=== PATIENT | female | born 1990 | race American Indian/Alaskan Native ===

== ENCOUNTER 2018-11-16 07:33 | Day surgery (SDC) | payer BC ==
[2018-11-07 12:10] VITALS: BMI 29.2
[2018-11-16] MEDS ORDERED: Midazolam 2 MG/2 ML VIAL ONE (08:51)
[2018-11-16] MEDS ORDERED: Propofol 10 mg/ml Inj (20 ML) ONE ×2 (08:51→09:20)
[2018-11-16] MEDS ORDERED: ceFOXitin IV 1 gm/100 ml in NS 2 GM/200 ML BAG ONE (08:58)
[2018-11-16] MEDS ORDERED: Lidocaine/Epinephrine 1% 1:100000 10 ML IJ ONE (09:01)
[2018-11-16 10:27] VITALS: RESP 15; O2SAT 100
[2018-11-16 10:39] VITALS: PULSE 74; TEMP 98.7
[2018-11-16 11:27] VITALS: BP 118/69
--- NOTE | 2018-11-17 08:14 | OP ---
PROCEDURE DATE: 11/16/2018 PREOPERATIVE DIAGNOSIS: A 27-year-old 0, para 0, with cervical dysplasia. POSTOPERATIVE DIAGNOSIS: A 27-year-old 0, para 0, with cervical dysplasia. SURGEON: Bridger Ernandez MD VENDING ROUTE DRIVER: None. TYPE OF ANESTHESIA: IV sedation. ANESTHESIA ADMINISTERED BY: Mynor Guzman MD COMPLICATIONS: None. PROCEDURE PERFORMED: Loop electrosurgical excision procedure. DESCRIPTION OF PROCEDURE: After informed consent was obtained, the patient was brought to the operating room, placed on the table where IV sedation was given. When anesthesia was found to be sufficient, she was prepped and draped in normal sterile fashion. After that, was inserted. After that, 20 mL of lidocaine with epinephrine was given in the cervix. After that, the anterior and posterior wall of the cervix was lifted up with Allis. The loop electrode 2.5 mm was used to do the LEEP. It was done after the electrode was used to do the LEEP from one side to another side. After that, ECC was done procedure. After that, electrode cautery was used to do the . Lot of Monsels was used. It was not hemostatic and no bleeding. It was looked up again. It was hemostatic and no bleeding. After that, the tenaculum was removed. was visualized that there was no bleeding. The EBL was 50 mL. The patient tolerated the procedure well. The patient will follow up with Dr. Ernandez. She was sent home on the pain medication . Bridger Ernandez MD
== END 2018-11-16 11:26 | disposition home or self-care (01) ==
LOC: C.SDS 07:33
PROVIDERS: ATTEND Obstetrics & Gynecology
DX: N87.1 Moderate cervical dysplasia (principal)
CPT/HCPCS: 57522; 88305; J1100; J2250; J2405; J2704; J3010